=== PATIENT | male | born 1950 | race Caucasian/White ===

== ENCOUNTER 2016-09-09 13:17 | Emergency (ER) | payer OTHER ==
[~2016-09-09] VITALS: Ht 177.8 cm; Wt 99.2 kg
[2016-09-09 13:20] VITALS: TEMP 36.6; Ht 177.8 cm; Wt 99.2 kg
[2016-09-09] MEDS ORDERED: LISI-461 PO (13:32)
--- NOTE | 2016-09-09 14:09 | EMERGENCY ROOM VISIT NOTE ---
History First contact with patient: 13:57 Chief Complaint: FACIAL PAIN/INJURY Stated Complaint: SWOLLEN LIP History of Present Illness The patient is a 66 year old male who presents to the Emergency Room with complaints of lip swelling. Started around 11am. No unusual foods. Only ate a doughnut from [employer] today which he has eaten on multiple occasions previously without an issue. He was at the chiropractor today and wonders whether he could have picked something up from there. No tongue swelling, difficulty breathing, hives or skin rash. He takes lisinopril for the last 10-12 year without any issues. No fevers or chills Review of Systems 6 systems reviewed otherwise negative Past Medical/Surgical History Medical Problems: (1) HYPERLIPIDEMIA NEC/NOS (2) Hypertension (3) Posttraumatic stress disorder Social History Smoking Status: Former Smoker Alcohol Use: none Drug Use: none Marital Status: Occupation Status: retired Current/Historical Medications Scheduled Amlodipine (Norvasc), 5 MG PO DAILY Prednisone (Prednisone), 1 TAB PO DAILY Allergies Coded Allergies: Morphine (Verified Allergy, Unknown, ., 09/09/16) Physical Exam Vital Signs Date Time Temp Pulse Resp B/P (MAP) Pulse Ox O2 Delivery O2 Flow Rate FiO2 09/09/16 15:09 82 18 167/97 96 09/09/16 13:20 36.6 88 17 171/92 97 Room Air Physical Exam VITAL SIGNS: were reviewed as above GENERAL: no acute distress SKIN: Warm dry and pink, no rashes HEAD: Normocephalic and atraumatic EYES: extraocular muscles intact, pupils equal OROPHARYNX: Isolated upper lip swelling without any erythema, no oral lesions, non erythematous OP, clear and moist NECK: Supple, no adenopathy LUNGS: clear to auscultation, no accessory muscle use HEART: Regular rate and rhythm, heart sounds 1+2, no murmurs EXTREMITIES: Warm and well perfused NEUROLOGICALLY: Awake alert and oriented without focal deficit. No facial droop MUSCULOSKELETAL: Good muscle tone. No evidence of trauma Medical Decision & Procedures Laboratory Results Medications Administered Medications (Trade) Dose Ordered Sig/Una Route Start Time Stop Time Status Last Admin Dose Admin Diphenhydramine HCl (Benadryl Cap) 50 mg NOW STAT PO 09/09/16 14:04 09/09/16 14:05 DC 09/09/16 14:16 50 MG Prednisone (PredniSONE TAB) 20 mg NOW STAT PO 09/09/16 14:05 09/09/16 14:07 DC 09/09/16 14:16 20 MG ED Course 1358: Complete history and physical performed 1404: Ordered Benadryl Cap 50 mg PO, Prednisone 20 mg PO. 1439: Discussed case with Dr Alba who separately performed history and examination. Medical Decision Prior records/ancillary studies reviewed. Triage Nursing notes reviewed. Additional history obtained from patient The patient's history was concerning for angioedema. Differential diagnosis: Etiologies such as allergic reaction, anaphylaxis, urticaria, Jay-Ryan syndrome, toxic epidermal necrolysis, erythema multiforme, cellulitis, as well as others were entertained. Physical examination: As above. isolated upper lip angioedema ER treatment provided: Benadryl 50mg PO Prednisone 20mg PO On reassessment the patient felt slightly better He refused any lab work after reasons were explained to the patient. It appears the patient had isolated angioedema. He had minimal improvement after the above medications. After monitoring and frequent reassessments the patient symptoms were stable and he was keen for discharge. The patient was counseled on the spectrum of this disease process and told to stop his lisinopril. I gave my usual and customary discussion regarding this issue. By the evaluation outlined above emergent etiologies such as recurring anaphylaxis, anaphylactic shock, airway compromise, Jay-Ryan syndrome, toxic epidermal necrolysis, erythema multiforme, infectious etiologies, as well as others were deemed relatively unlikely. The patient informed about the findings as listed above. All questions were answered and he pleased with the management plan. Return instructions were outlined and the patient was discharged in stable condition. Outpatient prescription management: prednisone 20 mg PO daily 3 days amlodipine 5mg PO daily 14 days Referral: The patient was referred back to primary care physician for follow-up in 2-3 days for a recheck of the current condition and recheck of his blood pressure. His blood pressure is likely to be somewhat situational given he was quite anxious. Impression Primary Impression: Angioedema Departure Information Dispostion Home / Self-Care Condition GOOD Prescriptions Amlodipine (Norvasc) 5 Mg Tab 5 MG PO DAILY for 10 Days, #10 TAB Prov: Maksim Hardy MD 09/09/16 Prednisone (Prednisone) 20 Mg Tab 1 TAB PO DAILY for 3 Days, TABS Prov: Maksim Hardy MD 09/09/16 Referrals No Doctor, Assigned (PCP) Dudley Parkinson M.D. Wilt, Kathryn A, C.R.N.P. Patient Instructions My [facility] Additional Instructions ANGIOEDEMA/ALLERGIC REACTION INSTRUCTIONS: Stop lisinopril Prednisone 20mg: Once daily until the prescription is finished. It is best to take this earlier in the day as some patients note occasional difficulty falling asleep when taken in the late evening. Diphenhydramine(Benadryl) 25mg: use 25 to 50 mg as needed every six hours for swelling, itching, or hives. This medication is sedating and will cause drowsiness. Avoid alcohol, operating machinery or dangerous equipment, working on ladders or roofs, DRIVING, or situations where being under the influence may be dangerous. Zantac 75: Take two pills twice a day along with Benadryl as needed for swelling , itching, or hives. Most people know this for its affect on the stomach, but it also acts similar to, but less potent than Benadryl for allergic reactions. Both the Benadryl and the Zantac are available [id number]. Read all the package inserts or medication information paperwork provided. If you have any questions or concerns call your primary provider, pharmacist or the ER for assistance. Return to the emergency department for worsening of your rash, swelling of your face, lips, tongue, or throat, difficulty breathing, vomiting, or as needed. Follow-up with your primary care physician in 2-3 days for a recheck of your current condition and blood pressure. Resident Tracking Resident Involvement: Resident Care Provided Care Provided: Adult ED Problem Qualifiers Primary Impression: Angioedema Encounter type: initial encounter Qualified Codes: T78.3XXA - Angioneurotic edema, initial encounter
[2016-09-09] MEDS ORDERED: AMLO-110 PO (14:50)
[2016-09-09] MEDS ORDERED: PRD20 PO (14:50)
[2016-09-09 15:09] VITALS: BP 167/97; PULSE 82; O2SAT 96
--- NOTE | 2016-09-09 18:48 | EMERGENCY ROOM VISIT NOTE ---
History Report prepared by Justineibsofi: Veronica Fairbanks Under the Supervision of: Dr. Rony Alba M.D. First contact with patient: 13:57 Chief Complaint: FACIAL PAIN/INJURY Stated Complaint: SWOLLEN LIP History of Present Illness The patient is a 66 year old male who presents to the Emergency Room with complaints of persistent upper lip swelling that began this morning and has progressively worsened. He currently rates his discomfort as a 1/10 in severity. The patient states that he has been on Lisinopril for the past 12 years and states that is the only medication he takes. He denies any previous reaction to the medication. The patient denies any known allergies. He denies any tongue swelling, shortness of breath, hives, or other rashes. The patient states that his only food today was a donut from [employer], reporting that he had two yesterday. Pt denies LOC, headache, visual changes, neck pain, chest pain, breathing difficulties, tooth pain, voice changes, tongue or throat swelling, nausea, vomiting, abdominal pain, back pain, numbness, weakness, open wounds, active bleeding, or other complaints. Source of History: patient Onset: this morning Position: lip (upper) Symptom Intensity: 1/10 Quality: other (swelling) Timing: other (persistent) Associated Symptoms: No SOB, No rash Review of Systems See HPI for pertinent positives and negatives. A total of ten systems were reviewed and were otherwise negative. Past Medical & Surgical Medical Problems: (1) HYPERLIPIDEMIA NEC/NOS (2) Hypertension (3) Posttraumatic stress disorder Family History Patient reports no known family medical history. Social History Smoking Status: Former Smoker Alcohol Use: none Drug Use: none Marital Status: Occupation Status: retired Current/Historical Medications Scheduled Amlodipine (Norvasc), 5 MG PO DAILY Prednisone (Prednisone), 1 TAB PO DAILY Allergies Coded Allergies: Morphine (Verified Allergy, Unknown, ., 09/09/16) Physical Exam Vital Signs Date Time Temp Pulse Resp B/P (MAP) Pulse Ox O2 Delivery O2 Flow Rate FiO2 09/09/16 15:09 82 18 167/97 96 09/09/16 13:20 36.6 88 17 171/92 97 Room Air Physical Exam GENERAL: Awake, alert, well-appearing, in no distress HENT: Normocephalic, atraumatic. Mild left upper lip swelling, no tongue or uvula swelling. EYES: Normal conjunctiva. Sclera non-icteric. NECK: Supple. No nuchal rigidity. FROM. No JVD. RESPIRATORY: Clear to auscultation. CARDIAC: Regular rate, normal rhythm. Extremities warm and well perfused. Pulses equal. ABDOMEN: Soft, non-distended. No tenderness to palpation. No rebound or guarding. No masses. RECTAL: Deferred. MUSCULOSKELETAL: Chest examination reveals no tenderness. The back is symmetrical on inspection without obvious abnormality. There is no CVA tenderness to palpation. No joint edema. LOWER EXTREMITIES: Calves are equal size bilaterally and non-tender. No edema. No discoloration. NEURO: Normal sensorium. No sensory or motor deficits noted. SKIN: No rash or jaundice noted. Medical Decision & Procedures Laboratory Results Test 09/09/16 14:16 The patient declined all laboratory work. Medications Administered Medications (Trade) Dose Ordered Sig/Una Route Start Time Stop Time Status Last Admin Dose Admin Diphenhydramine HCl (Benadryl Cap) 50 mg NOW STAT PO 09/09/16 14:04 09/09/16 14:05 DC 09/09/16 14:16 50 MG Prednisone (PredniSONE TAB) 20 mg NOW STAT PO 09/09/16 14:05 09/09/16 14:07 DC 09/09/16 14:16 20 MG ED Course 1358: The patient was evaluated in room D6. A complete history and physical exam was performed by Dr. Hardy, Sports Information Director. 1404: Ordered Benadryl Cap 50 mg PO, Prednisone 20 mg PO. 1439: The patient was evaluated in room D6. A complete history and physical exam was performed. I discussed the exam findings with him and I discussed the treatment plan. He verbalized complete understanding and agreement. He is ready to go home. Medical Decision Medication Reconciliation: I attest that I have personally reviewed the patient' s current medication list Blood pressure screening: Patient was found to have an elevated blood pressure and was referred to their primary doctor for recheck and further treatment. Triage Nursing notes reviewed and agree them. Additional history obtained from the patient's spouse. The patient's history was concerning for possible allergic reaction. Differential diagnosis: Etiologies such as allergic reaction, angioedema, anaphylaxis, urticaria, cellulitis, as well as others were entertained. Physical examination: As above. ER treatment provided: Oral Benadryl and prednisone On reassessment the patient felt better. Diagnostic interpretation by me: None ordered The patient was seen and examined with Dr. Hardy, resident physician. We discussed the case and treatments ordered, reviewed the results, and determine the disposition. Please refer to the resident's note for additional details. I have been directly involved with the management and disposition as well as independently evaluated the patient as documented in this note. It appears the patient had a mild episode of angioedema. There is no tongue or posterior oropharynx involvement. He is going to discontinue the lisinopril. We will initiate Norvasc and he will follow-up closely as an outpatient. The patient does not want any further testing done. Conservative management was discussed. I gave my usual and customary discussion regarding this issue. By the evaluation outlined above emergent etiologies such as airway compromise, Jay-Ryan syndrome, toxic epidermal necrolysis, erythema multiforme, cellulitis, as well as others were deemed relatively unlikely. The patient and informed about the findings as listed above. All questions were answered and they were pleased with the treatment. Return instructions were outlined and the patient was discharged in stable condition. Outpatient prescription management: Norvasc stop lisinopril prednisone Referral: The patient was referred back to his primary care physician for follow-up in 2- 3 days for a recheck of the current condition. The chart was completed utilizing [employer] voice recognition software. Grammatical errors, random word insertions, pronoun errors, and incomplete sentences are an occasional side effect of this system due to software limitations, ambient noise, and hardware issues. Any formal questions or concerns about the content, text, or information contained within the body of this dictation should be directly addressed to the physician for clarification. Impression Primary Impression: Angioedema Scribe Attestation The scribe's documentation has been prepared under my direction and personally reviewed by me in its entirety. I confirm that the note above accurately reflects all work, treatment, procedures, and medical decision making performed by me. Departure Information Dispostion Home / Self-Care Prescriptions Amlodipine (Norvasc) 5 Mg Tab 5 MG PO DAILY for 10 Days, #10 TAB Prov: Maksim Hardy MD 09/09/16 Prednisone (Prednisone) 20 Mg Tab 1 TAB PO DAILY for 3 Days, TABS Prov: Maksim Hardy MD 09/09/16 Referrals Dudley Parkinson M.D. (PCP) Donna Mendieta C.R.N.PDanisha Forms HOME CARE DOCUMENTATION FORM, IMPORTANT VISIT INFORMATION Patient Instructions My [facility] Additional Instructions ANGIOEDEMA/ALLERGIC REACTION INSTRUCTIONS: Stop lisinopril Prednisone 20mg: Once daily until the prescription is finished. It is best to take this earlier in the day as some patients note occasional difficulty falling asleep when taken in the late evening. Diphenhydramine(Benadryl) 25mg: use 25 to 50 mg as needed every six hours for swelling, itching, or hives. This medication is sedating and will cause drowsiness. Avoid alcohol, operating machinery or dangerous equipment, working on ladders or roofs, DRIVING, or situations where being under the influence may be dangerous. Zantac 75: Take two pills twice a day along with Benadryl as needed for swelling , itching, or hives. Most people know this for its affect on the stomach, but it also acts similar to, but less potent than Benadryl for allergic reactions. Both the Benadryl and the Zantac are available [id number]. Read all the package inserts or medication information paperwork provided. If you have any questions or concerns call your primary provider, pharmacist or the ER for assistance. Return to the emergency department for worsening of your rash, swelling of your face, lips, tongue, or throat, difficulty breathing, vomiting, or as needed. Follow-up with your primary care physician in 2-3 days for a recheck of your current condition and blood pressure. Problem Qualifiers Primary Impression: Angioedema Encounter type: initial encounter Qualified Codes: T78.3XXA - Angioneurotic edema, initial encounter
== END 2016-09-09 15:10 | disposition home or self-care (01) ==
LOC: C.EDB 13:18 → C.EDD 15:10
DX: T78.3XXA Angioneurotic edema, initial encounter (principal); X58.XXXA Exposure to other specified factors, initial encounter; E78.5 Hyperlipidemia, unspecified; I10 Essential (primary) hypertension; F43.10 Post-traumatic stress disorder, unspecified; Z87.891 Personal history of nicotine dependence